=== PATIENT | female | born 1975 | race Caucasian/White ===

== ENCOUNTER 2023-05-11 19:12 | Emergency (ER) | payer OTHER ==
[~2023-05-11] VITALS: Ht 165.1 cm; Wt 77.0 kg
[2023-05-11 20:11] LABS: Basophils # (auto) 0 10 ^3/uL (0-0.2); Basophils % (auto) 0.2 % (0.0-2.0); Eosinophils # (auto) 0 10 ^3/uL (0-0.8); Eosinophils % (auto) 0.2 % (0.0-7.0); Hemoglobin 7.5 g/dL (12.2-16.2); Lymphocytes % (auto) 37.3 % (10.0-50.0); Mean Corpuscular Hemoglobin 32.5 pg (28.0-32.0); Mean Corpuscular Hgb Conc. 34.1 g/dL (32.0-36.0); Mean Corpuscular Volume 95.3 fL (80.0-100.0); Monocytes # (auto) 0.7 10 ^3/uL (0-1.3); Monocytes % (auto) 12.8 % (0.0-12.0); Neutrophils # (auto) 2.7 10 ^3/uL (1.6-8.6); Neutrophils % (auto) 49.5 % (37.0-80.0); Nucleated Red Blood Cells % 0.3 %; Red Blood Cells 2.31 10^6/uL (4.0-5.20); Red Cell Distribution Width 21.5 % (11.8-14.3); White Blood Cell 5.5 10^3/uL (4.4-10.8)
[2023-05-11 20:29] LABS: BUN/Creatinine Ratio 12.3 (10.0-20.0); Magnesium 2.2 mg/dL (1.6-2.6); Potassium 3.6 mmol/L (3.5-5.1)
[2023-05-11 20:40] LABS: Bilirubin, Total 0.3 mg/dL (0.2-1.0); Total Protein 12.6 g/dL (6.4-8.2)
[2023-05-11 21:09] VITALS: PULSE 85; RESP 11; O2SAT 99
[2023-05-11 21:28] LABS: COVID19 ANTIGEN SOFIA FIA NEGATIVE (NEGATIVE); Rapid Influenza A Negative (Negative); Rapid Influenza B Negative (Negative)
[2023-05-12] MEDS ORDERED: LORazepam 2MG/ML-1ML VIAL IV ONE ×2 (01:30→03:00)
[2023-05-12] MEDS ORDERED: PANTOPRAZOLE 80 MG in SODIUM CHL 0.9% 100 ML IV ONE ×2 (01:30→03:00)
[2023-05-12] MEDS ORDERED: LACTATED RINGER'S 1,000 ML IV ONE (01:30)
[2023-05-12] MEDS ORDERED: ASPirin-EC 325mg tab PO ONE (01:30)
[2023-05-12] MEDS ORDERED: PANTOPRAZOLE 40 MG in SODIUM CHL 0.9% 100 ML IV ONE (03:00)
[2023-05-12] MEDS ORDERED: PANTOPRAZOLE 40mg/50ML NS AE 50 ML IV ONE (03:10)
[2023-05-12] MEDS ORDERED: SODIUM CHL 0.9% IV ONE (03:15)
[2023-05-12] MEDS ORDERED: PANTOPRAZOLE IV ONE (03:15)
[2023-05-12 07:35] VITALS: PULSE 74; RESP 16; O2SAT 99
[2023-05-12 08:00] VITALS: BP 122/66; PULSE 80; RESP 14; TEMP 97.9; O2SAT 98
== END 2023-05-12 08:26 | disposition short-term general hospital (02) ==
LOC: ER 19:12
DX: I21.4 Non-ST elevation (NSTEMI) myocardial infarction (principal); R77.8 Other specified abnormalities of plasma proteins; D64.9 Anemia, unspecified; F41.0 Panic disorder [episodic paroxysmal anxiety]; F41.9 Anxiety disorder, unspecified; J45.909 Unspecified asthma, uncomplicated; Z90.710 Acquired absence of both cervix and uterus; Z98.890 Other specified postprocedural states; Z88.8 Allergy status to other drugs, medicaments and biological substances; Z20.822 Contact with and (suspected) exposure to COVID-19
CPT/HCPCS: 36415; 71045; 80053; 83735; 84484; 85025; 86850; 86900; 86901; 87426; 87804; 93005; 96361; 96365; 96375; 99285; C9113; J2060